=== PATIENT | female | born 1950 | race Caucasian/White ===

== ENCOUNTER 2017-08-11 14:11 | Outpatient (CLI) | payer OTHER ==
--- NOTE | 2017-08-11 16:12 | RAD ---
CHEST TWO VIEWS: 08/11/17 HISTORY: Pneumonia, followup. COMPARISON: 07/06/17 and 06/10/17. FINDINGS: Cardiac silhouette and pulmonary vasculature are unremarkable. Mediastinum is midline. Infiltrate at the right posterior medial lung base is slightly less dense than on the 06/10/17 study. Parenchymal l inear scarring at the left lung base is more pronounced. Mediastinum is midline with aortic calcific ation. IMPRESSION: 1. Partial clearing of the right basilar pneumonia. Continued radiographic followup is suggested . 2. COPD. 3. Atherosclerosis. POS: [facility]
== END 2017-08-11 14:12 | disposition home or self-care (01) ==
LOC: RAD 14:11
PROVIDERS: ATTEND Internal Medicine Pulmonary Disease
DX: R06.00 Dyspnea, unspecified (principal); J44.9 Chronic obstructive pulmonary disease, unspecified; J18.9 Pneumonia, unspecified organism; I70.90 Unspecified atherosclerosis
CPT/HCPCS: 71020

== ENCOUNTER 2017-11-12 15:38 | Outpatient (CLI) | payer OTHER, MEDICARE ==
--- NOTE | 2017-11-12 16:35 | RAD ---
CHEST PA AND LATERAL TWO VIEWS: 11/12/17 HISTORY: 67-year-old female with history of dyspnea. COMPARISON: 08/11/17 FINDINGS: Prominent bilateral hyperinflation and chronic lung changes. Heart size is within normal limits. Athe rosclerosis of the aorta. IMPRESSION: Stable hyperinflation and chronic lung changes. Atherosclerosis of the aorta. No acute intrathoracic disease. POS: [facility]
== END 2017-11-12 15:39 | disposition home or self-care (01) ==
LOC: RAD 15:38
PROVIDERS: ATTEND Internal Medicine Pulmonary Disease
DX: R06.00 Dyspnea, unspecified (principal); I70.0 Atherosclerosis of aorta
CPT/HCPCS: 71046

== ENCOUNTER 2018-02-25 13:27 | Outpatient (CLI) | payer OTHER, MEDICARE ==
--- NOTE | 2018-02-25 13:50 | RAD ---
2 VIEWS CHEST: Date: 02/25/18 COMPARISON: 11/12/17. HISTORY: Dyspnea. FINDINGS: Two views of the chest show a normal sized cardiomediastinal silhouette. There is an area of air spac e opacity in the left lower lobe which was not seen on the prior radiograph and likely represents an infiltrate. No pleural effusion is seen. IMPRESSION: Left lower lobe infiltrate. POS: [facility]
== END 2018-02-25 13:28 | disposition home or self-care (01) ==
LOC: RAD 13:27
PROVIDERS: ATTEND Internal Medicine Pulmonary Disease
DX: R06.00 Dyspnea, unspecified (principal); R91.8 Other nonspecific abnormal finding of lung field
CPT/HCPCS: 71046

== ENCOUNTER 2018-04-14 14:33 | Outpatient (CLI) | payer OTHER, MEDICARE ==
--- NOTE | 2018-04-14 15:48 | RAD ---
CHEST ONE VIEW: 04/14/18 COMPARISON: 02/25/18 HISTORY: Dyspnea. FINDINGS: Atherosclerosis of the aorta. Pulmonary vessels are within normal limits. Costophrenic angles are dede ar. Lungs are hyperinflated with what appear to be chronic changes. There is increased opacity in the right upper lobe. Possibility of an infiltrate in this region cannot be excluded. There is no pneumo thorax or osseous abnormalities. Stable linear opacity in the left lung base. IMPRESSION: 1. Hyperinflation. COPD. 2. Chronic changes. 3. Atherosclerosis. 4. Increased density projecting over the right upper lobe. Possibility of a right upper lobe inf iltrate cannot be completely excluded. POS: [facility]
== END 2018-04-14 14:34 | disposition home or self-care (01) ==
LOC: RAD 14:33
PROVIDERS: ATTEND Internal Medicine Pulmonary Disease
DX: R06.00 Dyspnea, unspecified (principal); J44.9 Chronic obstructive pulmonary disease, unspecified; J98.11 Atelectasis; I70.0 Atherosclerosis of aorta; R91.8 Other nonspecific abnormal finding of lung field
CPT/HCPCS: 71046

== ENCOUNTER 2024-08-16 00:22 | Inpatient (IN) | payer MEDICARE ==
[2024-08-16] MEDS ORDERED: Ipratropium/Albuterol 3 ML NEB NEB PRN (00:59)
[2024-08-16] MEDS ORDERED: Ondansetron ODT 4 MG TAB PO PRN (01:07)
[2024-08-16] MEDS: Lactated Ringer's 500 ML IV SCH (03:14)
[2024-08-16 04:36] LABS: Hematocrit 30.7 % (36.0-47.0); Mean Corpuscular HGB CONC 32.6 g/dL (32.0-36.0); Mean Corpuscular Hemoglobin 27.4 pg (27.0-31.0); Mean Corpuscular Volume 84.1 fL (78.0-98.0); Mean Platelet Volume 9.3 fL (7.4-10.4); Platelet Count 158 10x3/uL (130-400); RBC Distribution Width 12.8 % (11.5-14.5); Red Blood Cell (RBC) Count 3.65 mill/uL (4.20-5.40)
[2024-08-16 04:47] LABS: Anion Gap 10 mmol/L (10-20); BUN (Urea Nitrogen) 7 mg/dL (9.8-20.1); Calc. Creatinine Clearance 106 mL/min (70-130); Calcium 8.6 mg/dL (7.8-10.44); Carbon Dioxide 29 mmol/L (23-31); Chloride 105 mmol/L (98-107); Estimated GFR 100; Glucose 162 mg/dL (83-110); Potassium 3.8 mmol/L (3.5-5.1); Sodium 140 mmol/L (136-145)
[2024-08-16 05:04] LABS: Band 5 % (5-11); Hypochromia SLIGHT = 6-15 cells (100X) (0-5/hpf); Lymphocytes 46 % (21-51); Monocytes 8 % (0-10); Neutrophil 37 % (42-75); Plasma Cells 0 % (0-0); Platelet Adequacy Comment Appears Adequate; Reactive Lymphocytes 4 % (0-10); Total Cell Count 100
[2024-08-16] MEDS: Ipratropium/Albuterol 3 ML NEB NEB SCH (07:21)
[2024-08-16] MEDS: Enoxaparin 40 MG (0.4 mL) SYRINGE SC SCH (08:42)
[2024-08-16] MEDS: Saccharomyces boulardii 250 MG CAP PO SCH (08:42)
[2024-08-16] MEDS: Doxycycline 100 MG CAP PO SCH (08:42)
[2024-08-16] MEDS: Pantoprazole DR 40 MG TAB PO SCH (08:42)
[2024-08-16] MEDS: predniSONE 20 MG TAB PO SCH (08:42)
[2024-08-16] MEDS: FLU (Fluad Triv) TS24-25 (65UP)/MF59C/PF 45 MCG/0.5 ML Syringe IM ONE (08:42)
[2024-08-16] MEDS: Albuterol 200 PUFF (6.7GM INHALER) INH SCH (11:02)
[2024-08-16] MEDS: Acetaminophen 325 MG TAB PO PRN (11:18)
[2024-08-17 04:16] LABS: #Basophils Less than 0.03 10x3/uL (0.0-0.2); #Eosinophils Less than 0.03 10x3/uL (0.0-0.7); %Basophils 0.1 % (0.0-1.0); %Lymphocytes 13.9 % (21.0-51.0); %Monocytes 12.5 % (0.0-10.0); Hematocrit 28.6 % (36.0-47.0); Hemoglobin 9.1 g/dL (12.0-16.0); Mean Corpuscular HGB CONC 31.8 g/dL (32.0-36.0); Mean Corpuscular Hemoglobin 27.1 pg (27.0-31.0); Mean Corpuscular Volume 85.1 fL (78.0-98.0); Mean Platelet Volume 9.4 fL (7.4-10.4); Platelet Count 192 10x3/uL (130-400); RBC Distribution Width 13.1 % (11.5-14.5); Red Blood Cell (RBC) Count 3.36 mill/uL (4.20-5.40)
[2024-08-17 04:34] LABS: Anion Gap 10 mmol/L (10-20); BUN (Urea Nitrogen) 15 mg/dL (9.8-20.1); Calc. Creatinine Clearance 87 mL/min (70-130); Calcium 8.8 mg/dL (7.8-10.44); Carbon Dioxide 29 mmol/L (23-31); Chloride 106 mmol/L (98-107); Estimated GFR 96; Glucose 132 mg/dL (83-110); Potassium 3.3 mmol/L (3.5-5.1); Sodium 142 mmol/L (136-145)
[2024-08-17] MEDS ORDERED: Albuterol 200 PUFF (6.7GM INHALER) INH PRN (08:22)
[2024-08-17] MEDS: Potassium Chloride 20 MEQ TAB PO SCH (08:49)
[2024-08-17] MEDS ORDERED: Non-Formulary Item 1 EACH (Omeprazole [Omeprazole] 20 MG Tablet.Dr) PO SCH (09:00)
[2024-08-17] MEDS: Acetaminophen 325 MG TAB PO PRN (13:08)
[2024-08-17 15:27] VITALS: BMI 22.8
[2024-08-17] MEDS: Losartan 25 MG TAB PO SCH (23:06)
[2024-08-18 05:32] LABS: Hematocrit 33.7 % (36.0-47.0); Hemoglobin 10.6 g/dL (12.0-16.0); Mean Corpuscular HGB CONC 31.5 g/dL (32.0-36.0); Mean Corpuscular Hemoglobin 27.4 pg (27.0-31.0); Mean Corpuscular Volume 87.1 fL (78.0-98.0); Mean Platelet Volume 9.3 fL (7.4-10.4); Platelet Count 249 10x3/uL (130-400); RBC Distribution Width 13.2 % (11.5-14.5); Red Blood Cell (RBC) Count 3.87 mill/uL (4.20-5.40)
[2024-08-18 05:49] LABS: Anion Gap 14 mmol/L (10-20); BUN (Urea Nitrogen) 14 mg/dL (9.8-20.1); Calc. Creatinine Clearance 95 mL/min (70-130); Calcium 9.3 mg/dL (7.8-10.44); Carbon Dioxide 27 mmol/L (23-31); Chloride 105 mmol/L (98-107); Estimated GFR 96; Glucose 86 mg/dL (83-110); Potassium 3.9 mmol/L (3.5-5.1); Sodium 142 mmol/L (136-145)
[2024-08-18 05:56] LABS: Band 8 % (5-11); Eosinophils 1 % (0-10); Hypochromia SLIGHT = 6-15 cells HPF (0-5); Lymphocytes 18 % (21-51); Metamyelocyte 1 % (0-0); Monocytes 2 % (0-10); Neutrophil 70 % (42-75); Platelet Adequacy Comment Platelets Normal; Polychromasia SLIGHT = 2-3 cells HPF (0-2)
[2024-08-18] MEDS: Potassium Chloride 20 MEQ TAB PO SCH (12:07)
[2024-08-18 15:41] VITALS: BP 175/87; TEMP 97.7
== END 2024-08-18 17:58 | disposition home or self-care (01) | DRG 189 ==
LOC: 2NO 00:22 → INTOOBSV 00:22 → IMCU/EMU 00:29 → 2NO 03:07 → OBSVTOIN 08-17 11:17
PROVIDERS: ADMIT Student in an Organized Health Care Education/Training Program; ATTEND Student in an Organized Health Care Education/Training Program
DX: J96.01 Acute respiratory failure with hypoxia (principal); J44.1 Chronic obstructive pulmonary disease with (acute) exacerbation; I10 Essential (primary) hypertension; R00.0 Tachycardia, unspecified; E87.6 Hypokalemia; D50.9 Iron deficiency anemia, unspecified; Z79.899 Other long term (current) drug therapy
CPT/HCPCS: 36415; 80048; 84145; 85025; 87633; 94640; J1650; J7120; J7512; J7620

== ENCOUNTER 2025-06-13 08:57 | Outpatient (CLI) | payer MEDICARE | END 2025-06-13 08:58 | disposition home or self-care (01) | LOC: RAD 08:57 | PROVIDERS: ATTEND Internal Medicine Critical Care Medicine | DX: R06.00 Dyspnea, unspecified (principal) | CPT/HCPCS: 71046 ==